=== PATIENT | male | born 1960 | race Caucasian/White ===

== ENCOUNTER 2018-01-02 13:25 | Emergency (ER) | payer OTHER ==
[~2018-01-02] VITALS: Ht 182.9 cm; Wt 102.1 kg
[2018-01-02] MEDS ORDERED: BLOOD THINNER (13:38)
[2018-01-02] MEDS ORDERED: CHOLESTEROL MED (13:38)
== END 2018-01-02 14:49 | disposition home or self-care (01) ==
LOC: ER 13:25
DX: S90.851A Superficial foreign body, right foot, initial encounter (principal); F17.210 Nicotine dependence, cigarettes, uncomplicated; W45.8XXA Other foreign body or object entering through skin, initial encounter
CPT/HCPCS: 10120; 73630; 99282-25